=== PATIENT | female | born 1985 | race Caucasian/White ===

== ENCOUNTER 2016-10-02 16:17 | Outpatient (CLI) | payer OTHER ==
[~2016-10-02] VITALS: Ht 154.9 cm; Wt 59.0 kg
[~2016-10-02 16:17] MED LIST: DOXY30TA PO; MULT1CHW4 PO; ONDA8TAB6 PO; VENL1CAP92 PO; VENL75CA PO
[2016-10-02] MEDS ORDERED: TERBUTALINE SULFATE 1 MG/ML VIAL SQ PRN (17:00)
[2016-10-02 17:58] VITALS: Ht 154.9 cm; Wt 59.0 kg
[2016-10-02] MEDS ORDERED: DOXY25TA7 (17:58)
[2016-10-02] MEDS ORDERED: FAMO1TAB71 PO (17:58)
[2016-10-02] MEDS ORDERED: PYRI100T4 PO (17:58)
--- NOTE | 2016-10-07 10:54 | EDITING REQUIRED CODING QUERY ---
DIAGNOSIS NEEDED To promote full compliance with coding requirements relating to patient care, physician participation is requested in all cases of project design engineer uncertainty. Please assist us with the question(s) below: Coding Question: The patient received care in labor and delivery on 10/02/16 as noted within the record. Please document the diagnosis that is being addressed by the medication/treatment. Provider Response: DIAGNOSIS:35 5/7 weeks gestation Abdominal pain Thank you for your assistance, Jennifer Purdy - Supervisor Phosphoric Acid
== END 2016-10-02 19:20 | disposition home or self-care (01) ==
LOC: C.OPB 16:17 → C.LD 16:17 → C.OPB 19:20
PROVIDERS: ATTEND Obstetrics & Gynecology
DX: O99.89 Other specified diseases and conditions complicating pregnancy, childbirth and the puerperium (principal); R10.9 Unspecified abdominal pain; Z3A.35 35 weeks gestation of pregnancy

== ENCOUNTER → 2016-10-09 | Outpatient (CLI) | payer OTHER ==
[~2016-10-09] MED LIST changes: +DOXY25TA7; -DOXY30TA PO; +FAMO1TAB71 PO; +FERR1TAB23; -ONDA8TAB6 PO; +PYRI100T4 PO; -VENL1CAP92 PO; -VENL75CA PO
== END | disposition home or self-care (01) ==
LOC: C.LABSPEC 11:22
PROVIDERS: ATTEND Obstetrics & Gynecology
DX: Z34.03 Encounter for supervision of normal first pregnancy, third trimester (principal)

== ENCOUNTER 2016-10-21 22:05 | Inpatient (IN) | payer OTHER ==
[~2016-10-21] VITALS: Ht 154.9 cm; Wt 61.0 kg
[~2016-10-21 22:05] MED LIST changes: -FERR1TAB23
[2016-10-21] MEDS ORDERED: LACTATED RINGER'S 1000ML 1,000 ML IV PRN (22:21)
[2016-10-21] MEDS ORDERED: LACTATED RINGER'S 1000ML 1,000 ML IV SCH (22:21)
[2016-10-21 22:47] LABS: HEMATOCRIT 28.8 % (37-47); MEAN CELL VOLUME 73.3 fL (80-100); MEAN CORPUSCULAR HEMOGLOBIN 23.2 pg (25-34); MEAN CORPUSCULAR HGB CONC 31.6 g/dl (32-36); MEAN PLATELET VOLUME 9.2 fL (7.4-10.4); PLATELET COUNT 182 K/uL (130-400); RED BLOOD COUNT 3.93 M/uL (4.2-5.4); WHITE BLOOD COUNT 14.33 K/uL (4.8-10.8)
[2016-10-21] MEDS ORDERED: EpHEDrine SULFATE INJ 50 MG/ML AMP ONE (22:50)
[2016-10-21] MEDS ORDERED: FENTANYL CITRATE INJ 50 MCG/1 ML 2 ML VIAL ONE (22:50)
[2016-10-21] MEDS ORDERED: FENTANYL 2MCG/ML ROPIV 1.25MG/ML 100ML BAG EPI ONE (22:50)
[2016-10-21] MEDS ORDERED: BUPIVACAINE 0.25% 30 ML VIAL ONE (22:50)
[2016-10-21] MEDS ORDERED: FERR1TAB23 (23:02)
[2016-10-21 23:03] VITALS: Ht 154.9 cm; Wt 61.0 kg
[2016-10-21] MEDS ORDERED: LACTATED RINGER'S 1000ML 500 ML IV PRN (23:51)
[2016-10-21] MEDS ORDERED: NALOXONE HCL INJ 1 MG in SODIUM CHLORIDE 0.9% 1000ML 1,000 ML IV PRN (23:51)
[2016-10-22] MEDS ORDERED: NALBUPHINE HCL INJ 10 MG/ML AMP IV PRN
[2016-10-22] MEDS ORDERED: EpHEDrine SULFATE INJ 50 MG/ML AMP IV PRN
[2016-10-22] MEDS ORDERED: FENTANYL 2MCG/ML ROPIV 1.25MG/ML 100ML BAG EPI PRN
[2016-10-22] MEDS ORDERED: NALOXONE HCL INJ 0.4 MG/1 ML VIAL/CARP IV PRN
[2016-10-22] MEDS ORDERED: ONDANSETRON INJ 2 MG/ML 2 ML VIAL IV PRN
[2016-10-22] MEDS ORDERED: DiphenhydrAMINE HCL 50 MG/ML VIAL IV PRN
[2016-10-22] MEDS ORDERED: CALCIUM CARBONATE 500 MG CHEWABLE ONE (00:55)
[2016-10-22] MEDS ORDERED: NURSING VERBAL MED ORDER ONE (01:00)
[2016-10-22] MEDS: CALCIUM CARBONATE 500 MG CHEWABLE PO PRN ×2 (01:02→10:44)
[2016-10-22] MEDS ORDERED: OXYTOCIN 30 UNITS/500ML NSS IV ONE (01:38)
[2016-10-22] MEDS ORDERED: OXYTOCIN 30 UNITS/500ML NSS IV PRN (02:15)
[2016-10-22] MEDS ORDERED: LANOLIN OINT EXT PRN ×2 (02:15)
[2016-10-22] MEDS ORDERED: ACETAMINOPHEN/CODEINE 300/30MG TAB PO PRN ×2 (02:15)
[2016-10-22] MEDS ORDERED: SUPERCREAM 0.870 % 15GM JAR EXT PRN (02:15)
--- NOTE | 2016-10-22 02:31 | DELIVERY SUMMARY ---
DATE OF OPERATION: 10/21/2016 The patient is a 31-year-old 1, para 0 white female, EDC of 11/01/2016, who presented at 39 weeks with spontaneous onset of labor. She ruptured her membranes spontaneously on arrival to labor and delivery. She progressed to full dilation posteffectively over intact perineum with effective general analgesia. There was meconium staining of the fluid later as the labor had progressed. There was no nuchal cord. Mouth and nasopharynx were suctioned down the perineum. Eventually, delivered without difficulty and placed on the mother's abdomen for further attention. Cord was clamped and cut as the initially was slow to cry. Once the baby was placed on the bed, there was vigorous crying and the infant was moving all 4 limbs. Placenta was then expressed intact with a 3-vessel cord. There were only superficial bilateral labial lacerations that were not bleeding and did not require repair. Estimated blood loss was 300 mL. Mother and were doing well after delivery. Bleeding was controlled with dilute Pitocin. I attest to the content of the Intraoperative Record and any orders documented therein. Any exceptio ns are noted below.
[2016-10-22] MEDS ORDERED: BENZOCAINE 20% AER SPR 82.5 GM CAN ONE (03:40)
[2016-10-22] MEDS: IBUPROFEN 600 MG TAB PO PRN ×4 (03:43→21:08)
[2016-10-22 05:30] VITALS: BP 119/72; PULSE 82; TEMP 36.9
[2016-10-22 07:50] VITALS: BP 127/83; PULSE 87; TEMP 36.7
[2016-10-22] MEDS: DOCUSATE SODIUM 100 MG CAP PO SCH ×2 (08:05→20:17)
[2016-10-22] MEDS: FERROUS SULFATE 325 MG TAB PO SCH (08:05)
[2016-10-22] MEDS: PRENATAL VITAMIN TAB PO SCH (08:05)
[2016-10-22] MEDS: ACETAMINOPHEN 325 MG TAB PO PRN ×2 (10:48→15:40)
--- NOTE | 2016-10-22 11:17 | Anesthesia Procedure Note ---
Anesthesia Epidural Removal Nt Date & Time Oct 22, 2016 at 11:17 Vital Signs Pain Intensity: 3.0 Vital Signs Past 12 Hours Date Time Temp Pulse Resp B/P Pulse Ox O2 Delivery O2 Flow Rate FiO2 10/22/16 07:50 36.7 87 20 127/83 10/22/16 05:30 36.9 82 20 119/72 10/22/16 05:30 Room Air Notes Mental Status: alert / awake / arousable, participated in evaluation Nausea / Vomiting: adequately controlled Pain: adequately controlled Airway Patency, RR, SpO2: stable & adequate BP & HR: stable & adequate Hydration State: stable & adequate Neuraxial Anesthesia: was administered, sensory block is resolved Anesthetic Complications: no major complications apparent, pt satisfied with anesthetic care Epidural: removed without complications, with tip intact
[2016-10-22 11:49] VITALS: BP 121/80; PULSE 69; TEMP 36.5
[2016-10-22 16:30] VITALS: BP 123/82; PULSE 86; TEMP 36.8; O2SAT 100
[2016-10-22 20:20] VITALS: BP 117/77; PULSE 71; TEMP 36.8; O2SAT 100
[2016-10-22 23:15] VITALS: BP 110/65; PULSE 72; TEMP 36.7; O2SAT 100; O2SAT 99
[2016-10-23 03:10] VITALS: BP 109/71; PULSE 74; TEMP 36.5; O2SAT 100
[2016-10-23] MEDS: ACETAMINOPHEN 325 MG TAB PO PRN ×4 (03:13→18:48)
[2016-10-23] MEDS: CALCIUM CARBONATE 500 MG CHEWABLE PO PRN ×4 (05:11→20:01)
--- NOTE | 2016-10-23 06:53 | Progress Note ---
Subjective Oct 23, 2016. Subjective conversation w/ patient, physical exam Ambulation: ambulating normally Voiding: no voiding problems Passing Gas: Yes Diet Tolerance: Regular Diet Lochia: Moderate Feeding Type: Bottle Feeding Pain: No pain reported this morning Review of Systems Constitutional: No chills, No fever Respiratory: No cough, No shortness of breath Cardiac: No chest pain Breast: No breast pain Abdomen: No nausea, No pain, No vomiting Female : No dysuria Objective Vital Signs Date Time Temp Pulse Resp B/P Pulse Ox O2 Delivery O2 Flow Rate FiO2 10/23/16 03:10 36.5 74 18 109/71 100 Room Air 10/22/16 23:15 100 Room Air 10/22/16 23:15 36.7 72 18 110/65 99 Room Air 10/22/16 20:20 36.8 71 18 117/77 100 Room Air 10/22/16 16:30 36.8 86 16 123/82 100 Room Air 10/22/16 11:49 36.5 69 16 121/80 10/22/16 07:50 36.7 87 20 127/83 Physical Exam General Appearance: WELL-APPEARING, WD/WN, NO APPARENT DISTRESS Respiratory/Chest: lungs clear, normal breath sounds Cardiovascular: regular rate, rhythm, no gallop, no murmur Abdomen: non tender, soft Fundus: Firm, Relation to Umbilicus (At umbilicus) Extremities: no calf tenderness Laboratory Results Last 24 Hours Test 10/23/16 04:44 Medications Current Inpatient Medications Medications (Trade) Dose Ordered Sig/Jordan Route Start Time Stop Time Status Last Admin Dose Admin Calcium Carbonate (Tums Chew Tab) 500 mg PRN PRN PO 10/22/16 01:00 11/21/16 00:59 10/23/16 05:11 500 MG Oxytocin (Pitocin IV) 30 units UD PRN IV 10/22/16 02:15 11/21/16 02:14 Cocaine HCl (Supercream 0.870% Cr) BID PRN EXT 10/22/16 02:15 11/05/16 02:14 Lanolin (Lanolin Oint) PRN PRN EXT 10/22/16 02:15 11/21/16 02:14 Prenat Multivit/ Architecture Department Chair/Iron/Folic Ac ( Vitamin Tab) 1 tab DAILY PO 10/22/16 08:00 11/21/16 07:59 10/22/16 08:05 1 TAB Ibuprofen (Motrin Tab) 600 mg Q4H PRN PO 10/22/16 02:15 11/21/16 02:14 10/22/16 21:08 600 MG Acetaminophen (Tylenol Tab) 650 mg Q6H PRN PO 10/22/16 02:15 11/21/16 02:14 10/23/16 03:13 650 MG Acetaminophen/ Codeine Phosphate (Tylenol w/ Codeine #3 Tab) 1 tab Q4H PRN PO 10/22/16 02:15 11/21/16 02:14 Acetaminophen/ Codeine Phosphate (Tylenol w/ Codeine #3 Tab) 2 tab Q4H PRN PO 10/22/16 02:15 11/21/16 02:14 Bisacodyl (Dulcolax Tab) 5 mg 20 PO 10/23/16 20:00 10/23/16 20:01 Docusate Sodium (coLACE CAP) 100 mg BID PO 10/22/16 08:00 11/21/16 07:59 10/22/16 20:17 100 MG Ferrous Sulfate (Feosol Tab) 325 mg QAM PO 10/22/16 08:00 11/21/16 07:59 10/22/16 08:05 325 MG Assessment and Plan Post- Day#: 1 Continue Routine Care: - Vital Signs reviewed and WNL (temp max 36.5) - Blood Type: B+, GBS Negative, Rubella Immune - Encourage Ambulation today - Tolerating PO Diet - Pain well controlled Resident Physician Supervision Note: I interviewed and examined the patient. Discussed with Dr. Woo and agree with findings and plan as documented in the note. Any exceptions or clarifications are listed here: [None] Documented By: Hermes Acosta
[2016-10-23 07:58] LABS: HEMATOCRIT 30.3 % (37-47)
[2016-10-23] MEDS: FERROUS SULFATE 325 MG TAB PO SCH (08:29)
[2016-10-23] MEDS: PRENATAL VITAMIN TAB PO SCH (08:29)
[2016-10-23 08:30] VITALS: BP 113/76; PULSE 76; TEMP 37.2
[2016-10-23] MEDS: DOCUSATE SODIUM 100 MG CAP PO SCH ×2 (08:30→20:01)
[2016-10-23] MEDS: IBUPROFEN 600 MG TAB PO PRN ×2 (10:50→15:27)
[2016-10-23] MEDS ORDERED: BISACODYL 5 MG TABEC PO SCH (20:00)
[2016-10-23 23:20] VITALS: BP 117/66; PULSE 71; TEMP 36.8; O2SAT 97
--- NOTE | 2016-10-24 06:44 | Progress Note ---
Subjective Oct 24, 2016. Subjective conversation w/ patient, physical exam Ambulation: ambulating normally Voiding: no voiding problems Passing Gas: Yes Diet Tolerance: Regular Diet Lochia: Moderate Feeding Type: Breast Feeding Pain: No pain reported this morning Review of Systems Constitutional: No chills, No fever Respiratory: No cough, No shortness of breath Cardiac: No chest pain Breast: No breast pain Abdomen: No nausea, No pain, No vomiting Female : No dysuria Objective Vital Signs Date Time Temp Pulse Resp B/P Pulse Ox O2 Delivery O2 Flow Rate FiO2 10/23/16 23:20 97 Room Air 10/23/16 23:20 36.8 71 18 117/66 97 Room Air 10/23/16 15:50 Room Air 10/23/16 08:30 37.2 76 20 113/76 Physical Exam General Appearance: WELL-APPEARING, WD/WN, NO APPARENT DISTRESS Respiratory/Chest: lungs clear, normal breath sounds Cardiovascular: regular rate, rhythm, no gallop, no murmur Abdomen: non tender, soft Fundus: Firm, Relation to Umbilicus (1cm below umbilicus) Extremities: no calf tenderness Laboratory Results Last 24 Hours Test 10/23/16 07:45 Hemoglobin 9.7 g/dL Hematocrit 30.3 % Medications Current Inpatient Medications Medications (Trade) Dose Ordered Sig/Jordan Route Start Time Stop Time Status Last Admin Dose Admin Calcium Carbonate (Tums Chew Tab) 500 mg PRN PRN PO 10/22/16 01:00 11/21/16 00:59 10/23/16 20:01 500 MG Oxytocin (Pitocin IV) 30 units UD PRN IV 10/22/16 02:15 11/21/16 02:14 Cocaine HCl (Supercream 0.870% Cr) BID PRN EXT 10/22/16 02:15 11/05/16 02:14 Lanolin (Lanolin Oint) PRN PRN EXT 10/22/16 02:15 11/21/16 02:14 Prenat Multivit/ [place]/Iron/Folic Ac ( Vitamin Tab) 1 tab DAILY PO 10/22/16 08:00 11/21/16 07:59 10/23/16 08:29 1 TAB Ibuprofen (Motrin Tab) 600 mg Q4H PRN PO 10/22/16 02:15 11/21/16 02:14 10/23/16 15:27 600 MG Acetaminophen (Tylenol Tab) 650 mg Q6H PRN PO 10/22/16 02:15 11/21/16 02:14 10/23/16 18:48 650 MG Acetaminophen/ Codeine Phosphate (Tylenol w/ Codeine #3 Tab) 1 tab Q4H PRN PO 10/22/16 02:15 11/21/16 02:14 Acetaminophen/ Codeine Phosphate (Tylenol w/ Codeine #3 Tab) 2 tab Q4H PRN PO 10/22/16 02:15 11/21/16 02:14 Docusate Sodium (coLACE CAP) 100 mg BID PO 10/22/16 08:00 11/21/16 07:59 10/23/16 20:01 100 MG Ferrous Sulfate (Feosol Tab) 325 mg QAM PO 10/22/16 08:00 11/21/16 07:59 10/23/16 08:29 325 MG Assessment and Plan Post- Day#: 2 Continue Routine Care: -Vital Signs reviewed and WNL (temp max 36.8) - Blood Type: B+, GBS Negative, Rubella Immune - Encourage Ambulation today - Tolerating PO Diet - Pain well controlled - Discharge today Resident Physician Supervision Note: I interviewed and examined the patient. Discussed with Dr. Woo and agree with findings and plan as documented in the note. Any exceptions or clarifications are listed here: none, plan d/c, instructions given. Documented By: Lilo Gilbert
--- NOTE | 2016-10-24 06:45 | Discharge Instructions ---
Discharge Instructions Admission Reason for Admission: Check Labor Discharge Discharge Diagnosis / Problem: Vaginal Delivery Discharge Goals Goal(s): Routine recovery after delivery Medications Continue Dispensed Medications: supercream, dermaplast, tucks, lansinoh Activity Recommendations Activity Limitations: per Instructions/Follow-up section . Instructions / Follow-Up Instructions / Follow-Up ACTIVITY RECOMMENDATIONS: * Gradual return to full activity over the next 2-3 weeks. * No lifting - nothing heavier than baby over the next 2-3 weeks. * Do not engage in vigorous exercise, sexual activity or sports until cleared by your physician. * Do not drive or operate any motorized equipment until cleared by your physician. * You may shower/bathe daily. MEDICATIONS: For discomfort or pain, you may use Acetaminophen (Tylenol), Ibuprofen (Advil), or Naproxen (Aleve) following the package directions. For constipation you may use Colace following the package directions. BREAST CARE: If you are not breast feeding: * Wear a supportive bra 24 hours a day for one to two weeks. * Avoid stimulating your breasts and nipples as much as possible during the first few weeks after delivery. * When taking a shower, have the warm water hit your back, not breasts. * When your breasts feel full, apply ice packs. Usually three to four times a day helps ease the discomfort. * Take a mild pain medication (Tylenol / Motrin) when you are uncomfortable. If breast feeding: * Use breast milk to lubricate nipples. Lansinoh cream may be used for sore nipples. You do not need to remove cream prior to breast feeding. If using a different brand of cream, check the label for directions regarding removal of cream prior to nursing. * Wear a supportive bra. * If having problems with breasts or breast feeding, call a healthcare market consultant or your health care provider. EPISIOTOMY CARE: After delivery, if you have an episiotomy (stitches), the following steps will ease discomfort and aid healing. * For the first 24 hours after delivery, place ice packs next to your episiotomy to help reduce swelling. * After the first 24 hour-period, sitz baths, either portable or in the tub, are suggested. A shower with a shower arm sprayed over the episiotomy may be comforting. * Latoya care should be done after each voiding and bowel movement. Squirt warm water from a plastic bottle over the perineum (region of the body between the anus and urinary opening) and pat dry. * Use Dermoplast to ease discomfort. Shake container. Hatley directly over the episiotomy. Place a Tucks on a clean sanitary pad next to your episiotomy. SPECIAL CARE INSTRUCTIONS: When you are discharged from the hospital, it is important for you to follow the instructions listed below: * During the first week at home, you should be able to care for yourself and your baby. In addition, the usual light household activities are encouraged. * Limit your activities to the way you feel. Do not try to clean the house or move furniture. Be sensible. * If you actively engage in sports and have done so up until the time of your delivery, you may resume these activities as soon as you feel able. This may take up to one month or even longer. Use good judgment. * Continue to take your vitamins for at least six weeks after the of your baby. * Your diet need not be limited unless you were on a special diet before your delivery. Breast-feeding mothers need around 2500 calories per day and at least 64-80 ounces of fluid per day (8 to 10 glasses). * You should eat foods from the four major food groups. Crash diets or fad diets are to be avoided. Eating lean meats, fresh fruits and vegetables, low-fat dairy products, high fiber foods and a regular exercise program, will help you get back to your pre- weight without putting your health at risk. * Constipation is sometimes a problem after delivery. Take a mild laxative as needed. If breast feeding, Milk of Magnesia is acceptable to use. You may use a suppository or Fleets enema if no episiotomy. * A daily shower or tub bath is suggested. Be sure to thoroughly and gently dry the perineum. * A bloody vaginal discharge will usually continue until around four weeks post . A small amount of bleeding may continue for as long as six weeks. Vaginal discharge changes from the bright red bleeding after delivery to pink then brownish and finally yellowish-pink before becoming white and disappearing. * Bleeding may increase with activity. Your first period may come in 4-8 weeks. If you are breast feeding, your period may be delayed even longer. * [place] (sex) can begin whenever both you and your partner feel comfortable and do not have any form of genital infection. It is recommended that you wait at least six weeks for internal and external healing to occur. If you have questions, please talk to your health care practitioner. A condom should be used to prevent infection and . * Foreplay, gentle intercourse and lubrication is very important the first several times to prevent pain. A water-based lubricant such as K-Y jelly or Astroglide may be used. * If you have RH negative blood and your baby is RH positive, you will receive RHOGAM by injection prior to discharge. The nurse will give you a card to keep with you that has the date and place that you received RHOGAM after delivery. * During your care, you had a Rubella screen done to check for the presence of rubella antibodies in your blood. If your test was negative, you will receive a Rubella vaccine prior to discharge. This vaccine may cause a fever, soreness at the injection site and flu-like symptoms. If these symptoms persist, notify your health care practitioner. is not advised for one month after a Rubella vaccine. * Verbalizes understanding of car seat law as reviewed with patient nursing. * Car Seat hand-out given and reviewed with patient by nursing. * Shaken baby information reviewed with patient by nursing. Call you doctor if: * Heavy bleeding (saturating several pads an hour) or passing clots the size of your fist. * A fever >101 degrees F (38.3 degrees C) on two occasions four hours apart and /or chills. * Unusual pain in the pelvic or vaginal areas. * "Baby Blues" lasting longer than two weeks. If you have any questions or concerns, call your health care practitioner at . FOLLOW UP VISIT: * Please call the office at to schedule a 6 week examination. It is important you keep this appointment. It is important for you to make arrangements for either yearly or twice yearly check-ups thereafter. Current Hospital Diet Patient's current hospital diet: Regular OB Diet Discharge Diet Recommended Diet: Regular Diet Pending Studies Studies pending at discharge: no Medical Emergencies . Who to Call and When: Medical Emergencies: If at any time you feel your situation is an emergency, please call 911 immediately. . Non-Emergent Contact Non-Emergency issues call your: Cna Caregiver . . "Provider Documentation" section prepared by Lucas Woo. VTE Core Measure Inpt VTE Proph given/why not?: Treatment not indicated
[2016-10-24 08:00] VITALS: BP 112/74; PULSE 80; TEMP 36.6
[2016-10-24] MEDS: DOCUSATE SODIUM 100 MG CAP PO SCH (08:12)
[2016-10-24] MEDS: FERROUS SULFATE 325 MG TAB PO SCH (08:13)
[2016-10-24] MEDS: PRENATAL VITAMIN TAB PO SCH (08:13)
[2016-10-24 10:30] VITALS: BP_DIAS 74; PULSE 80; TEMP 36.6
== END 2016-10-24 12:30 | disposition home or self-care (01) | DRG 775 ==
LOC: C.OPB 22:05 → C.OBG 22:05 → C.OPB 22:22 → C.OBG 22:22 → C.LD 22:51 → C.OBG 10-22 05:46
PROVIDERS: ADMIT Obstetrics & Gynecology; ATTEND Obstetrics & Gynecology
PROC: 10E0XZZ Delivery of Products of Conception, External Approach (ICD-10-PCS; principal; 2016-10-22)
DX: O99.02 Anemia complicating childbirth (principal); D64.9 Anemia, unspecified; O77.0 Labor and delivery complicated by meconium in amniotic fluid; O70.0 First degree perineal laceration during delivery; Z37.0 Single live birth; Z3A.39 39 weeks gestation of pregnancy

== ENCOUNTER → 2018-01-20 | Outpatient (CLI) | payer OTHER ==
[~2018-01-20] MED LIST changes: -DOXY25TA7; -FAMO1TAB71 PO; -PYRI100T4 PO
== END | disposition home or self-care (01) ==
LOC: C.PAPS 18:09
PROVIDERS: ATTEND Physician Assistant
DX: Z12.4 Encounter for screening for malignant neoplasm of cervix (principal)

== ENCOUNTER 2023-01-10 14:41 | Inpatient (IN) ==
[2023-01-10] MEDS ORDERED: OXYTOCIN 30 UNITS/500 ML BAG IV PRN ×2 (14:53→19:01)
[2023-01-10] MEDS ORDERED: LIDOCAINE 1% LOCAL 20 ML VIAL INFIL PRN (14:53)
--- NOTE | 2023-01-10 15:03 | History & Physical Report ---
Date of Service January 10, 2023 Assessment & Plan (1) 39 weeks gestation of : (2) Normal first stage of labor: Plan will admit and get labs, due to initial bp lfts ordered and due to use of heparin, coags ordered. ? if arom needed, after nurse exam was ? of srom. pt notes desires epidural, will consult anesth once labs back. fhts categ 1. addendum: pt feels pressure. cx /-[address]h on their way, pt desires epidural History of Present Illness Chief Complaint: regular ctx. Primary Care Provider: NO PCP 37yo at 39+wks ega presents to L&D with regular ctx. Noting ctx since 11am today, now q2min. Cx check by nurse 3cm/80% bulging membranes. No rom on arrival. c/b AMA and Antiphospholipid syndrome, seen by hematology, currently on bid heparin and plan for 6wks pp lovenox. Patient took last dose of heparin last pm. Has migraines, anxiety disorder as well. PNL rh pos, ri, gbs neg OBH: svdx 1, sab x 1 GYNH: h/o LEEP Allergies Allergy/AdvReac Type Severity Reaction Status Date / Time Bactrim Allergy Intermediate itchy Verified 10/22/16 10:42 sulfamethoxazole Allergy Intermediate itchy Verified 01/09/23 10:07 trimethoprim Allergy Intermediate itchy Verified 01/09/23 10:07 Home Medications Medication Instructions Recorded Confirmed Type aspirin 81 mg tablet,delayed 81 mg PO DAILY 07/17/22 01/10/23 History release famotidine 20 mg tablet (Pepcid) 20 mg PO DAILY 01/10/23 01/10/23 History heparin (bovine) 5,000 unit/mL 7,500 unit BID 01/10/23 01/10/23 History injection solution vits no.124-ferrous fum 1 tab PO DAILY 01/10/23 01/10/23 History 27 mg iron-folic acid 800 mcg tablet ( Vitamin) Patient History Medical History (Updated 01/10/23 @ 15:01 by Allison Liu MD, FACOG) Chronic paroxysmal hemicrania Depression Depression with anxiety Factor II deficiency heterozygote General counseling and advice for contraceptive management History of chicken pox Migraines Nausea Optic nerve disorder Ptosis, left Spontaneous Visual field defect Well woman exam with routine gynecological exam Surgical History H/O breast augmentation H/O colonoscopy H/O LEEP many years ago H/O oral surgery Family History Mother Anxiety Asthma Factor II deficiency Father Dyslipidemia Hypertension Myocardial infarction Sister Factor II deficiency Deep vein thrombosis Denies family history of Ovarian cancer Breast cancer Colorectal cancer Social History (Updated 06/16/22 @ 15:25 by Jordyn Luu RN) Smoking Status: Never smoker Second Hand Exposure: No; Do You Dip or Chew Tobacco: No; Hx Alcohol Use: No Hx Substance Use: No Preferred Language: Slovenian Communication Ability: Effective Visual Impairment: No Limitations Hearing Ability: Normal Director Of Radio Services Required: No Beliefs That Will Affect Care: None marital status: Single marital status details: Carovir[place]ia Laboy (37) Current Living Situation: Spouse Current Living Situation Comment: lives with FOB, daughter, no pets current occupational status: employed current occupation: Dental hygienist Other Information That Helps Us Care for You: No Feels Safe at Home: Yes Safety Concerns: Feels Safe At This Time Review of Systems as per Subjective / HPI Physical Exam Constitutional: WD/WN, vitals as above Respiratory: normal respiratory effort, lungs clear to auscultation Cardiovascular: Rate/Rhythm: regular rate and regular rhythm Neurologic: grossly intact Psychiatric: A+Ox3, euthymic affect Genitourinary: Manual OB Exam: + cervical dilation (per nurse) 3 cm OB Exam Monitor Tracing: + external FHT monitor used, + external uterine monitor used (q2), + category I and + normal FHT variability Results & Data Vital Signs (Past 12 Hours) Vital Signs Pulse BP 01/10/23 14:47 83 135/93 Coding Level of Care Code None Diagnoses 39 weeks gestation of Z3A.39 Normal first stage of labor
[2023-01-10] MEDS: LACTATED RINGER'S 1,000 ML IV PRN ×2 (15:10→16:18)
[2023-01-10] MEDS ORDERED: CALCIUM CARBONATE 500 MG CHEWABLE TAB PO PRN (15:39)
[2023-01-10 15:40] LABS: Hematocrit (blood only) 34.9 % (37.0-47.0); Hemoglobin 12.6 g/dl (12.0-16.0); Mean Corpuscular Hemoglobin 30.2 pg (25.0-34.0); Mean Corpuscular Hgb Conc 36.1 g/dL (32.0-36.0); Mean Corpuscular Volume 83.7 fL (80.0-100.0); Mean Platelet Volume 10.6 fL (9.4-12.4); Platelet Count 181 K/uL (130-400); RDW Coefficient of Variation 12.8 % (11.5-14.5); RDW Standard Deviation 38.6 fL (36.4-46.3); Red Blood Count 4.17 M/uL (4.20-5.40); White Blood Count 10.32 K/ul (4.8-10.8)
[2023-01-10] MEDS ORDERED: CALCIUM CARBONATE 500 MG CHEWABLE TAB ONE (15:42)
[2023-01-10 15:58] LABS: Albumin Globulin Ratio 1.1 (0.9-2); Albumin Level 3.6 gm/dl (3.4-5.0); Bilirubin,Total 0.4 mg/dl (0.2-1.0); Calcium 9.7 mg/dl (8.6-10.3); Creatinine Clr Calc Pharmacy 80.4 ml/min; Est GFR (African American) 122.8 ml/min; Globulin 3.3 gm/dl (2.5-4.0); Potassium 3.7 mmol/L (3.5-5.1); Total Protein 6.9 gm/dl (6.0-8.3)
[2023-01-10 16:10] LABS: INR 0.9 (0.9-1.1); Partial Thromboplastin Ratio 0.9; Partial Thromboplastin Time 25.1 Seconds (21.0-31.0); Prothrombin Time 10.4 Seconds (9.0-12.0)
[2023-01-10] MEDS ORDERED: ePHEDrine sulfate 50 MG/ML AMP ONE (16:15)
[2023-01-10] MEDS ORDERED: SODIUM CHLORIDE 0.9% PF INJ 10 ML VIAL ONE (16:15)
[2023-01-10] MEDS ORDERED: fentaNYL citrate PF 100 MCG/2 ML VIAL ONE (16:15)
[2023-01-10] MEDS ORDERED: BUPIVACAINE 0.25% PF 30 ML VIAL ONE (16:16)
[2023-01-10] MEDS ORDERED: fentaNYL 2MCG/ML ROPIVACAINE 1.25MG/ML 100 ML BAG EPI ONE (16:16)
[2023-01-10] MEDS ORDERED: LIDOCAINE 2%/EPINEPHRINE 1:200,000 20 ML PF ONE (16:16)
--- NOTE | 2023-01-10 16:42 | Anesthesiology Consultation ---
Date of Service January 10, 2023 Assessment & Plan Chart Review Chart Review: Acceptable Risk for Labor Epidural Consults Requested none ASA ASA2 Proposed Anesthesia Anesthesia Type: Labor Epidural Risk / Benefits Reviewed With: PT / POA / Parent / Guardian, Accepts Plan and Informed Consent Obtained History Height/Weight Height: 5 ft 1 in Weight: 56.245 kg Allergies Allergy/AdvReac Type Severity Reaction Status Date / Time Bactrim Allergy Intermediate itchy Verified 10/22/16 10:42 sulfamethoxazole Allergy Intermediate itchy Verified 01/09/23 10:07 trimethoprim Allergy Intermediate itchy Verified 01/09/23 10:07 Medications Home Medications Medication Instructions Recorded Confirmed Last Taken aspirin 81 mg tablet,delayed 81 mg PO DAILY 07/17/22 01/10/23 01/09/23 release famotidine 20 mg tablet (Pepcid) 20 mg PO DAILY 01/10/23 01/10/23 01/09/23 heparin (bovine) 5,000 unit/mL 7,500 unit BID 01/10/23 01/10/23 01/09/23 injection solution 7500 vits no.124-ferrous fum 1 tab PO DAILY 01/10/23 01/10/23 01/09/23 27 mg iron-folic acid 800 mcg tablet ( Vitamin) Active Medications Generic Name Dose Route Start Last Admin Trade Name Freq PRN Reason Stop Dose Admin Lactated Ringer's 1,000 mls @ 125 mls/hr 01/10/23 14:53 01/10/23 16:18 Lr IV 01/12/23 14:52 125 mls/hr .Q8H PRN Administration L&D Protocol Protocol Past Medical History Medical History Chronic paroxysmal hemicrania Depression Depression with anxiety Factor II deficiency heterozygote General counseling and advice for contraceptive management History of chicken pox Migraines Nausea Optic nerve disorder Ptosis, left Spontaneous Visual field defect Well woman exam with routine gynecological exam Exercise / Class Metabolic Activity II 4-5 Yardwork/Stairs/Walk up hill Past Family History Family History Mother Anxiety Asthma Factor II deficiency Father Dyslipidemia Hypertension Myocardial infarction Sister Factor II deficiency Deep vein thrombosis saddle embolus Denies family history of Ovarian cancer Breast cancer Colorectal cancer Past Surgical History Surgical History H/O breast augmentation H/O colonoscopy H/O LEEP many years ago H/O oral surgery Past Anesthesia History No Hx of Anesthesia Complications and No Family Hx of Anesthesia Complications History of PONV No Hx of PONV and No Hx of Motion Sickness Social History Smoking Status: Never smoker Do You Dip or Chew Tobacco: No Hx Alcohol Use: No Hx Substance Use: No substance use type: does not use Physical Exam Vital Signs Last Vital Signs Temp 97.5 F L 01/10/23 14:59 Pulse 88 01/10/23 16:38 Resp 24 01/10/23 15:45 BP 137/80 01/10/23 15:45 Pulse Ox 99 01/10/23 16:38 ENMT Mouth: no dentition abnormality Thyromental Distance: > or= 3.5 Finger Breadths Mallampati Class: II Neck normal visual inspection Respiratory normal respiratory effort Auscultation: lungs clear to auscultation bilaterally Cardiovascular Rate/Rhythm: regular rate and regular rhythm Testing Laboratory Results 01/10/23 15:15 01/10/23 15:15 PT 10.4 Seconds (9.0-12.0) 01/10/23 15:15 INR 0.9 (0.9-1.1) 01/10/23 15:15 APTT 25.1 Seconds (21.0-31.0) 01/10/23 15:15
[2023-01-10] MEDS ORDERED: ePHEDrine sulfate 50 MG/ML AMP IV PRN (16:59)
[2023-01-10] MEDS ORDERED: diphenhydrAMINE 50 MG/ML VIAL IV PRN (16:59)
[2023-01-10] MEDS ORDERED: NALOXONE HCL 0.4 MG/1 ML VIAL/CARP IV PRN (16:59)
[2023-01-10] MEDS ORDERED: NALBUPHINE HCL INJ 10 MG/ML AMP IV PRN (16:59)
[2023-01-10] MEDS ORDERED: fentaNYL 2MCG/ML ROPIVACAINE 1.25MG/ML 100 ML BAG EPI PRN (16:59)
[2023-01-10] MEDS ORDERED: ONDANSETRON INJ 2 MG/ML 2 ML VIAL IV PRN (16:59)
[2023-01-10] MEDS ORDERED: NALOXONE HCL 1 MG in SODIUM CHLORIDE 0.9% 1000ML 1,000 ML IV PRN (16:59)
--- NOTE | 2023-01-10 17:48 | Labor Progress Brief Note ---
Date of Service January 10, 2023 Subjective starting to feel relief from anesthesia Assessment & Plan (1) 39 weeks gestation of : (2) Antiphospholipid syndrome complicating , antepartum: (3) Normal first stage of labor: Plan begin 2nd stage soon. fhts categ 1. post epidural removal will begin her lovenox no sooner than 4hr after. d/w pharm. Admission and Anticipated Discharge Date Admission Date: January 10, 2023 Physical Exam Constitutional: WD/WN, vitals as above Genitourinary: Manual OB Exam: + cervical dilation (ant lip), + cervical effacement 100%, + station 0 and + amniotic fluid (arom) clear OB Exam Monitor Tracing: + external FHT monitor used, + external uterine monitor used (q2-4), + category I and + normal FHT variability Results & Data Vital Signs (Past 12 Hours) Vital Signs Temp Pulse Resp BP Pulse Ox 01/10/23 14:59 97.5 F L 20 01/10/23 17:43 100 01/10/23 17:43 85 01/10/23 17:40 91 H 01/10/23 17:40 104/73 01/10/23 17:38 100 01/10/23 17:38 114 H 01/10/23 17:33 100 01/10/23 17:33 82 01/10/23 17:30 81 01/10/23 17:30 107/56 L 01/10/23 17:28 100 01/10/23 17:28 79 01/10/23 17:28 79 01/10/23 17:28 131/57 L 01/10/23 17:26 83 01/10/23 17:26 157/77 H 01/10/23 17:25 93 01/10/23 17:25 74 01/10/23 17:23 95 01/10/23 17:23 93 H 01/10/23 17:23 103/63 01/10/23 17:21 85 01/10/23 17:21 100/56 L 01/10/23 17:20 80 01/10/23 17:20 99/57 L 01/10/23 17:18 98 01/10/23 17:18 82 01/10/23 17:18 92 H 01/10/23 17:18 120/75 01/10/23 17:16 90 01/10/23 17:16 140/69 01/10/23 17:14 83 01/10/23 17:14 146/79 H 01/10/23 17:13 100 01/10/23 17:13 87 01/10/23 17:11 87 01/10/23 17:11 117/78 01/10/23 17:08 100 01/10/23 17:08 81 01/10/23 17:08 85 01/10/23 17:08 106/74 01/10/23 17:06 79 01/10/23 17:06 111/71 01/10/23 17:03 100 01/10/23 17:03 87 01/10/23 17:04 84 01/10/23 17:04 108/70 01/10/23 17:02 65 01/10/23 17:02 113/72 01/10/23 17:00 82 01/10/23 17:00 117/70 01/10/23 16:58 100 01/10/23 16:58 81 01/10/23 16:57 75 01/10/23 16:57 116/67 01/10/23 16:56 75 01/10/23 16:56 110/63 01/10/23 16:55 74 01/10/23 16:55 122/75 01/10/23 16:53 98 01/10/23 16:53 66 01/10/23 16:52 90 01/10/23 16:52 116/72 01/10/23 16:49 96 H 01/10/23 16:49 129/80 01/10/23 16:48 97 01/10/23 16:48 83 01/10/23 16:46 81 01/10/23 16:46 131/79 01/10/23 16:43 100 01/10/23 16:43 100 H 01/10/23 16:42 92 01/10/23 16:42 91 H 01/10/23 16:38 99 01/10/23 16:38 88 01/10/23 16:37 93 01/10/23 16:37 97 H 01/10/23 16:33 100 01/10/23 16:33 97 H 01/10/23 16:30 88 L 01/10/23 16:30 86 01/10/23 16:28 100 04/29/23 16:28 97 H 01/10/23 16:23 99 01/10/23 16:23 89 01/10/23 16:22 87 L 01/10/23 16:22 77 01/10/23 16:16 100 01/10/23 16:17 89 L 01/10/23 16:16 87 01/10/23 16:17 88 01/10/23 15:45 24 01/10/23 15:45 24 01/10/23 15:15 22 01/10/23 15:15 22 01/10/23 15:45 94 H 01/10/23 15:45 137/80 01/10/23 14:47 83 135/93 Coding Level of Care Code None Diagnoses 39 weeks gestation of Z3A.39 Antiphospholipid syndrome complicating , antepartum O99.119; D68.61 Normal first stage of labor
--- NOTE | 2023-01-10 18:41 | Delivery Summary ---
Vaginal Delivery Summary Date of Service January 10, 2023 Vaginal Delivery Summary The patient dilated to complete and pushed to deliver a viable female infant Apgars 8 and 9 via over intact perineum. Mouth and nose bulb suctioned at perineum. Shoulders and body delivered with ease. Infant was vigorous and crying at . Cord clamped at 30 seconds of life and to maternal abdomen where the cord was then doubly clamped and cut. Placenta delivered spontaneously and intact, three-vessel cord. Hemostasis achieved with dilute pitocin and uterine massage and drainage of the bladder for approximately 50 cc under sterile conditions. Cervix and sulci intact. EBL 300 cc. Mother and baby stable in recovery. [facility] Vaginal Delivery Charge Delivery Type Details:
--- NOTE | 2023-01-10 18:58 | Anesthesia Procedure Note ---
Date of Service January 10, 2023 Anesthesia Post Epidural Note Vital Signs Vital Signs: Temp Pulse Resp BP Pulse Ox 36.8 C 73 20 150/82 H 90 01/10/23 17:40 01/10/23 18:46 01/10/23 18:00 01/10/23 18:46 01/10/23 18:39 Pain Intensity Lower Abdomen: Pain Intensity: 10 Notes Mental Status: alert / awake / arousable and participated in evaluation Nausea / Vomiting: adequately controlled Pain: adequately controlled Airway Patency, RR, SpO2: stable & adequate BP & HR: stable & adequate Hydration State: stable & adequate Neuraxial Anesthesia: was administered and sensory block is resolving Anesthetic Complications: no major complications apparent and Pt Satisfied with anesthetic care Epidural: Removed without complications and With tip intact
[2023-01-10] MEDS ORDERED: bisacodyL 10 MG SUPP PR PRN (19:01)
[2023-01-10] MEDS ORDERED: OXYTOCIN 20 UNITS in LACTATED RINGER'S 1,000 ML IV SCH (19:01)
[2023-01-10] MEDS ORDERED: oxyCODONE/ACETAMINOPHEN 5mg/325mg TAB PO PRN (19:01)
[2023-01-10] MEDS ORDERED: BENZOCAINE 20% AER SPR 82.5 GM CAN EXT PRN (19:01)
[2023-01-10] MEDS ORDERED: HYDROCORTISONE ACETATE 25 MG SUPP PR PRN (19:01)
[2023-01-10] MEDS ORDERED: DIPHTHERIA/TETANUS/PERTUSSIS 0.5mL SYR/VIAL (Age 7+yrs) IM ONE (19:01)
[2023-01-10] MEDS ORDERED: ACETAMINOPHEN 325 MG TAB PO PRN (19:01)
[2023-01-10] MEDS ORDERED: SODIUM CHLORIDE 0.9% 250 ML IV PRN (21:30)
[2023-01-10] MEDS: DOCUSATE SODIUM 100 MG CAP PO SCH (23:01)
[2023-01-10] MEDS: IBUPROFEN 600 MG TAB PO PRN (23:13)
[2023-01-10] MEDS ORDERED: ENOXAPARIN INJ 40 MG/0.4 ML SYR SQ ONE (23:30)
[2023-01-11] MEDS: IBUPROFEN 600 MG TAB PO PRN ×2 (07:35→12:39)
[2023-01-11] MEDS: PRENATAL VITAMIN 1 TAB PO SCH (07:36)
[2023-01-11] MEDS: DOCUSATE SODIUM 100 MG CAP PO SCH ×2 (07:37→20:04)
--- NOTE | 2023-01-11 10:20 | Obstetrical Progress Note ---
Date of Service January 11, 2023 Assessment & Plan (1) care and examination: routine pp care, pt doing well so far with mood, will monitor. can d/w nursing breast feeding if desires. (2) Antiphospholipid syndrome complicating , antepartum: lovenox planned 6wk pp, restarted last pm. once daily dosing Day #:: 1 Subjective Ambulation: ambulating normally Voiding: no voiding problems Diet Tolerance:: regular diet Lochia:: Small Feeding Type:: bottle feeding is considering breast feeding--seemingly moreso due to request of FOB, she has implants and concern for production and nipple pain. no issues with mood now but concerned about developing issues later. has h/o using celexa prior to preg and has script at home from Dr. Gilbert. Constitutional: + as per Subjective / HPI Physical Exam Constitutional WD/WN, vitals as above Respiratory normal respiratory effort, lungs clear to auscultation Cardiovascular Rate/Rhythm: regular rate and regular rhythm Gastrointestinal (Abdomen) Inspection/Auscultation: abdomen normal to inspection Percussion/Palpation: abdomen soft Fundus firm 1cm down Musculoskeletal nt calves no edema Neurologic grossly normal Psychiatric A+Ox3, euthymic affect Results & Data Vital Signs (Past 12 Hours) Vital Signs Temp Pulse Resp BP 01/11/23 03:43 98.1 F 71 18 108/78 01/10/23 23:30 97.7 F 66 18 111/72
[2023-01-11] MEDS: FAMOTIDINE 20 MG TAB PO SCH (12:39)
[2023-01-11] MEDS ORDERED: ENOXAPARIN INJ 40 MG/0.4 ML SYR SQ ONE (23:05)
--- NOTE | 2023-01-12 06:30 | Obstetrical Progress Note ---
Date of Service January 12, 2023 Assessment & Plan (1) care and examination: (2) Normal first stage of labor: (3) 39 weeks gestation of : (4) Antiphospholipid syndrome complicating , antepartum: Admission and Anticipated Discharge Date Admission Date: January 10, 2023 Jesu Harden is a 37 y/o female G_P_ who is PPD #2 following delivery at _ weeks. She reports feeling well overall this morning. _ abdominal cramping & _/10 pain well managed on analgesics. Voiding _. Tolerating meals overnight and able to ambulate some. _ passing gas and _ bowel movement. Has some persistent lochia with some improvement this morning. Currently breast feeding. Review of Systems Constitutional: no fever, no chills and no sweats Respiratory: no cough, no dyspnea and no wheezing Cardiovascular: no chest pain, no palpitations and no calf pain Genitourinary: no dysuria Neurologic: no headache(s) Physical Exam Constitutional: WD/WN, vitals as above no acute distress Respiratory: no respiratory distress Auscultation: lungs clear to auscultation bilaterally; no rales, no rhonchi and no wheezes Cardiovascular: RRR, no murmur, no edema Extremities: no calf tenderness and no edema Negative Diane's sign bilaterally. Gastrointestinal (Abdomen): Inspection/Auscultation: normal bowel sounds Genitourinary: Uterine fundus firm, palpable below the umbilicus. Results & Data Vital Signs (Past 12 Hours) Vital Signs Temp Pulse Resp BP O2 Del Method 01/12/23 00:23 36.5 C 55 L 16 117/77 Room Air 01/11/23 19:58 36.7 C 80 16 113/79 Room Air Resident Activity Tracking Resident Involvement: Resident Care Provided Care Provided: OB Delivery
--- NOTE | 2023-01-12 07:06 | Obstetrical Progress Note ---
Date of Service January 12, 2023 Assessment & Plan (1) care and examination: routine pp care, pt doing well so far with mood, will monitor. ready for dc home. f/u 6 wk pp reviewed and instructions reviewed. rh pos, ri, bottle/breast (2) Antiphospholipid syndrome complicating , antepartum: lovenox planned 6wk pp, once daily dosing Day #:: 2 Subjective Ambulation: ambulating normally Voiding: no voiding problems Diet Tolerance:: regular diet Lochia:: Small Feeding Type:: bottle feeding did try breast feeding yest, may try pumping. she is feeling good mood rios. having cramping, helped by motrin. Constitutional: + as per Subjective / HPI Physical Exam Constitutional WD/WN, vitals as above Respiratory normal respiratory effort, lungs clear to auscultation Cardiovascular Rate/Rhythm: regular rate and regular rhythm Gastrointestinal (Abdomen) Inspection/Auscultation: abdomen normal to inspection Percussion/Palpation: abdomen soft Fundus firm 1cm down Musculoskeletal nt calves no edema Neurologic grossly normal Psychiatric A+Ox3, euthymic affect Results & Data Vital Signs (Past 12 Hours) Vital Signs Temp Pulse Resp BP O2 Del Method 01/12/23 00:23 97.7 F 55 L 16 117/77 Room Air 01/11/23 19:58 98.1 F 80 16 113/79 Room Air
[2023-01-12] MEDS: IBUPROFEN 600 MG TAB PO PRN (08:18)
[2023-01-12] MEDS: PRENATAL VITAMIN 1 TAB PO SCH (08:18)
[2023-01-12] MEDS: DOCUSATE SODIUM 100 MG CAP PO SCH (08:18)
[2023-01-12] MEDS: FAMOTIDINE 20 MG TAB PO SCH (09:14)
== END 2023-01-12 10:40 | disposition home or self-care (01) | DRG 806 ==
LOC: OPB 14:41 → 4S1 14:42 → 4E2 21:39